=== PATIENT | male | born 1960 | race Caucasian/White ===

== ENCOUNTER 2023-07-13 07:02 | Day surgery (SDC) | payer OTHER ==
[~2023-07-13] VITALS: Ht 177.8 cm; Wt 93.2 kg
[2023-07-13] MEDS ORDERED: ALBUTEROL SULFATE 2.5 MG/0.5 ML NEB SOLUTION NEB ONE (07:03)
[2023-07-13] MEDS ORDERED: LIDOCAINE 2% 11 ML JELLY TP ONE (07:03)
[2023-07-13] MEDS ORDERED: LIDOCAINE 4% 50 ML SOLUTION TP ONE (07:03)
[2023-07-13] MEDS ORDERED: BENZOCAINE 20% 50 MCG/SPRAY 57 GM TP ONE (07:03)
[2023-07-13] MEDS ORDERED: SODIUM CHLORIDE 0.9% 1,000 ML ONE (07:29)
[2023-07-13] MEDS ORDERED: PANT40TA54 PO (07:35)
[2023-07-13] MEDS ORDERED: LACT10SO10 PO (07:35)
[2023-07-13] MEDS ORDERED: CHOL200074 PO (07:35)
[2023-07-13] MEDS ORDERED: LINA5TAB PO (07:35)
[2023-07-13] MEDS ORDERED: SPIR-37 PO (07:35)
[2023-07-13] MEDS ORDERED: FERR324T4 PO (07:35)
[2023-07-13] MEDS ORDERED: ASPI-1444 PO (07:35)
[2023-07-13 08:06] LABS: GLUCOMETER DEV NAME(LOC) SDS.; GLUCOSE,POINT OF CARE 158 MG/DL (70-110)
[2023-07-13] MEDS ORDERED: FentaNYL CITRATE PF 100 MCG/2 ML VIAL ONE (08:59)
[2023-07-13] MEDS ORDERED: MIDAZOLAM HCL 2 MG/2 ML VIAL ONE (08:59)
[2023-07-13 10:00] VITALS: PULSE 90; RESP 16; O2SAT 99
[2023-07-13] MEDS: MethylPREDNISolone SOD SUCC 125 MG/2 ML VIAL IVP ONE (10:20)
[2023-07-13] MEDS: SODIUM CHLORIDE 0.9% 1,000 ML IV ONE (10:27)
== END 2023-07-13 11:25 | disposition home or self-care (01) ==
LOC: SURGERY 07:02
PROVIDERS: ATTEND Internal Medicine Critical Care Medicine
DX: R05.3 Chronic cough (principal); J81.1 Chronic pulmonary edema; R06.2 Wheezing; R91.1 Solitary pulmonary nodule; J98.09 Other diseases of bronchus, not elsewhere classified; J98.8 Other specified respiratory disorders; B37.0 Candidal stomatitis; Z79.899 Other long term (current) drug therapy; Z90.89 Acquired absence of other organs; Z90.49 Acquired absence of other specified parts of digestive tract; Z98.890 Other specified postprocedural states
CPT/HCPCS: 82962; 87206; 87101; 87220; 87070; 87186; 31623; 31624; 94640; 71045; 87015; J3010; J2250; J2930; Q9967; J7030; 88112; 88305; J7613; Z7610